=== PATIENT | male | born 1990 | race Caucasian/White ===

== ENCOUNTER 2016-11-12 20:07 | Emergency (ER) | payer BC, OTHER ==
--- NOTE | 2016-11-12 20:11 | PDOC ---
History of Present Illness - General History Source: Patient Exam Limitations: No Limitations - History of Present Illness Initial Comments: 11/12/16 20:25 The patient is a 25 year old male, with no significant past medical history, who presents to the emergency department complaining of left ear pain since approximately 16:00. The patient reports his pain is more of a discomfort. Patient denies any associated fever, chills, ear discharge, or sore throat. Patient admits he has been immersed his ears in a hot tub twice this summer. As per family member, the patient was in a saltwater hot tub last week. At the time , the pH of the tub was not normal and the filter was not on for long. Family member reported similar symptoms as the patient, but states they resolved on their own. Patient does not report any other complaints at this time. Patient reports a history of ear infections in the past. PAST MEDICAL HISTORY: No significant history PAST SURGICAL HISTORY: No significant history FAMILY HISTORY: No pertinent history SOCIAL HISTORY: Pt lives with family and is employed. MEDICATIONS: reviewed ALLERGIES: As per nursing notes PCP: Dr. Hall General: No fevers or chills, no weakness, no weight loss HEENT: Yes: +ear pain/discomfort. No change in vision. No sore throat. No ear discharge. CardioVascular: No chest pain or shortness of breath Respiratory:No cough, or wheezing. Gastrointestinal: no nausea, vomiting, diarrhea or constipation, No rectal bleeding Genitourinary: No dysuria, hematuria, or frequency Musculoskeletal: No joint or muscle pain or swelling Neurologic: No headache, vertigo, dizziness or loss of consciousness Psychiatric: nor depression Skin: No rashes or easy bruising Endocrine: no increased thirst or abnormal weight change Allergic: no skin or latex allergy All other systems reviewed and normal GENERAL: The patient is awake, alert, and fully oriented, in no acute distress. HEAD: Normal with no signs of trauma. EYES: Pupils equal, round and reactive to light, extraocular movements intact, sclera anicteric, conjunctiva clear. EARS: Bilateral tympanic membranes are dull with some mild erythema, left greater than right. EXTREMITIES: Normal range of motion, no edema. NEUROLOGICAL: Normal speech, normal gait. PSYCH: Normal mood, normal affect. SKIN: Warm, Dry, normal turgor, no rashes or lesions noted. <Ann-Marie Rivera - Last Filed: 11/12/16 20:25> - General History Source: Patient Exam Limitations: No Limitations - History of Present Illness Initial Comments: 11/12/16 20:27 A portion of this note was documented by scribe services under my direction. I have reviewed the details of the note, within reason, and agree with the documentation. The case summary and management plan written by me. Assessment and plan: This is a 25-year-old male comes in complaining of left ear pain. Patient on examination has a bilateral otitis media but left greater than right. Patient started on azithromycin and first dose given here in the emergency room. Patient had prescription sent to his pharmacy and was discharged home. <Jhony Sánchez I - Last Filed: 11/12/16 20:28> - General Chief Complaint: Ear Problem Stated Complaint: LT EAR PAIN Time Seen by Provider: 11/12/16 20:11 Past History <Ann-Marie Rivera - Last Filed: 11/12/16 20:25> - Psycho/Social/Smoking Cessation Hx Suicidal Ideation: No Smoking Status: No Smoking History: Never smoked Number of Cigarettes Smoked Daily: 0 <Jhony Sánchez I - Last Filed: 11/12/16 20:28> - Past Medical History Allergies/Adverse Reactions: Allergies Allergy/AdvReac Type Severity Reaction Status Date / Time No Known Allergies Allergy Verified 11/19/11 21:56 Home Medications: Ambulatory Orders No Home Medications 1 ea MC ONCE 11/19/11 Acetaminophen 650 mg PO ONCE 11/12/16 Azithromycin 250 mg PO DAILY #4 tablet 11/12/16 *Physical Exam - Vital Signs Last Vital Signs Temp Pulse Resp BP Pulse Ox 99 F 87 16 145/74 96 11/12/16 20:17 11/12/16 20:17 11/12/16 20:17 11/12/16 20:17 11/12/16 20:17 <Ann-Marie Rivera - Last Filed: 11/12/16 20:25> ED Treatment Course - Medications Given in the ED: ED Medications Discontinued Medications Generic Name Dose Route Start Last Admin Trade Name Shanon PRN Reason Stop Dose Admin Azithromycin 500 mg 11/12/16 20:22 11/12/16 20:25 Zithromax - PO 11/12/16 20:23 500 mg ONCE ONE Administration <Ann-Marie Rivera - Last Filed: 11/12/16 20:25> *DC/Admit/Observation/Transfer - Attestations Scribe Attestion: 11/12/16 20:25 Documentation prepared by Ann-Marie Rivera, acting as medical appointment scheduler for Jhony Sánchez MD. <Ann-Marie Rivera - Last Filed: 11/12/16 20:25> - Discharge Dispostion Admit: No <Jhony Sánchez I - Last Filed: 11/12/16 20:28> Diagnosis at time of Disposition: Bilateral acute otitis media - Discharge Dispostion Disposition: HOME Condition at time of disposition: Stable - Prescriptions Prescriptions: Azithromycin 250 mg PO DAILY #4 tablet - Referrals Referrals: Ivanna Hall MD [Primary Care Provider] - - Patient Instructions Additional Instructions: Tylenol or Motrin as needed for pain or fevers. Take azithromycin 1 tablet a day for the next 4 days take your first dose tomorrow evening. Return to the emergency department immediately with ANY new, persistent or worsening symptoms. Continue any medications as previously prescribed by your physician. You should follow up with your primary doctor as soon as possible regarding today's emergency department visit. . Please make sure your doctor reviews the results of your emergency evaluation. Thank you for coming to the Emergency Department today for your care. It was a pleasure to see you today. Please note that your evaluation is INCOMPLETE until you follow-up with your doctor.
[2016-11-12] MEDS ORDERED: AZITHROMYCIN 250 MG TABLET (FP) PO ONE (20:22)
[2016-11-12 20:23] VITALS: BP 145/74; PULSE 87; TEMP 99; BMI 42.0
[2016-11-12] MEDS ORDERED: AZITHROMYCIN 250 MG TABLET (FP) ONE (20:23)
== END 2016-11-12 20:27 | disposition home or self-care (01) ==
LOC: FER 20:07
DX: H66.93 Otitis media, unspecified, bilateral (principal)
CPT/HCPCS: 99281-25

== ENCOUNTER 2016-11-13 21:57 | Emergency (ER) | payer OTHER ==
--- NOTE | 2016-11-13 22:06 | PDOC ---
History of Present Illness - General Chief Complaint: Ear Problem Stated Complaint: EAR/FACIAL SWELLING Time Seen by Provider: 11/13/16 21:58 - History of Present Illness Initial Comments: This otherwise healthy 25-year-old man presents with increasing pain in his left ear and left-sided facial swelling for 1 day. Patient was seen here yesterday with bilateral ear pain. Bilateral otitis media (left greater than right) diagnosed patient started on azithromycin 250 mg daily. Patient has been taking his antibiotic as prescribed. Today, he and his family noted that he developed swelling in the left cheek extending to lips. He reports no tongue swelling; he has not had any difficulty swallowing or breathing;No wheezing noted. He has not had fever or chills. Of note, the patient has been swimming daily for the last week. No previous history of swimmer's ear/otitis media/otitis externa Past History - Past Medical History Allergies/Adverse Reactions: Allergies Allergy/AdvReac Type Severity Reaction Status Date / Time No Known Allergies Allergy Verified 11/19/11 21:56 Home Medications: Ambulatory Orders No Home Medications 1 ea MC ONCE 11/19/11 Acetaminophen 650 mg PO ONCE 11/12/16 Azithromycin 250 mg PO DAILY #4 tablet 11/12/16 Amox-Tr/K Cl [Augmentin - 875Mg Tablet] 1 tab PO BID #14 tablet 11/13/16 Neomycin/Polymyxn/Hc [Cortisporin Otic Suspenstion -] 4 drop AU Q4HWA #1 bottle 11/13/16 - Psycho/Social/Smoking Cessation Hx Anxiety: No Suicidal Ideation: No Smoking Status: No Smoking History: Never smoked Have you smoked in the past 12 months: Yes Number of Cigarettes Smoked Daily: 0 If you are a former smoker, when did you quit?: RUBÉN 'Breaking Loose' booklet given: 11/12/16 Review of Systems - Review of Systems Able to Perform ROS?: Yes Comments:: 12 point review of systems is negative except for what is noted in the history of present illness *Physical Exam - Physical Exam Comments: GENERAL: Young adult male, alert and oriented 3, in no acute distress HEAD: Normal with no signs of trauma. EYES: PERRLA, EOMI, sclera anicteric, conjunctiva clear. ENT: Right earmild canal edema, partial visualization of TM shows dullness Left earmoderate canal edema with mild erythema; TM could not be visualized; patient had mild pain with movement of external ear Mild left cheek edema with minimal upper and lower lip edema; no tongue/ uvular edema; no erythema or masses No trismus noted NECK: Normal range of motion, supple; mildly tender enlarged left anterior cervical lymphadenopathy, no JVD, or stridor. LUNGS: Breath sounds equal, clear to auscultation bilaterally. No wheezes, and no crackles. HEART:Regular rate and rhythm, normal S1 and S2 without murmur, rub or gallop. ABDOMEN:.normal bowel sounds No guarding,tenderness or rebound.No masses No distention. EXTREMITIES: Normal range of motion, no edema. No clubbing or cyanosis. No erythema, or tenderness. NEUROLOGICAL: Cranial nerves II through XII grossly intact. Normal speech. No focal neurological deficits. MUSCULOSKELETAL: Back non-tender to palpation, no CVA tenderness SKIN: Warm, Dry, normal turgor, no rashes or lesions noted. Medical Decision Making - Medical Decision Making This 25-year-old man seen here yesterday with bilateral otitis media presents with increasing pain/swelling of left ear/left side of face. Patient had been taking azithromycin as prescribed. On exam, he has significant bilateral otitis externa; TM could not be visualized on the left. Patient is at risk for otitis externa because of his frequent swimming over the last week. Patient will be started on treatment for the otitis externa (Cortisporin otic suspension ) and oral antibiotic coverage will be broadened to Augmentin 875/125. *DC/Admit/Observation/Transfer Diagnosis at time of Disposition: Bilateral otitis externa Qualifiers: Otitis externa type: swimmer's ear Chronicity: acute Qualified Code(s): H60.333 - Swimmer's ear, bilateral - Discharge Dispostion Disposition: HOME Condition at time of disposition: Stable - Prescriptions Prescriptions: Amox-Tr/K Cl [Augmentin - 875Mg Tablet] 1 tab PO BID #14 tablet Neomycin/Polymyxn/Hc [Cortisporin Otic Suspenstion -] 4 drop AU Q4HWA #1 bottle - Referrals Referrals: Ivanna Hall MD [Primary Care Provider] - 3 days - Patient Instructions Printed Discharge Instructions: Otitis Externa Additional Instructions: Stop azithromycin Begin Augmentin 875/125 twice a day for one week (take with food) Begin Cortisporin eardrops 4 drops in each ear every 4 hours while awake for 1 week Ibuprofen/acetaminophen/naproxen as needed for pain Follow-up with within 2-3 days Return to ER if you have severe pain/high fever/increased facial swelling
[2016-11-13 22:10] VITALS: BP 135/81; PULSE 88; TEMP 99.2; BMI 42.0
[2016-11-13] MEDS ORDERED: AMOX TR/POT CLAV 875MG/125MG TABLETS (FP) PO ONE (22:14)
[2016-11-13] MEDS ORDERED: AMOX TR/POT CLAV 875MG/125MG TABLETS (FP) ONE (22:18)
== END 2016-11-13 22:23 | disposition home or self-care (01) ==
LOC: FER 21:57
DX: H60.333 Swimmer's ear, bilateral (principal)
CPT/HCPCS: 99281-25

== ENCOUNTER 2025-01-06 02:23 | Emergency (ER) | payer BC ==
[2025-01-06 02:31] VITALS: BP 138/95; PULSE 104; RESP 18; TEMP 98.6; BMI 30.2
[2025-01-06] MEDS ORDERED: DIPHTH,PERTUSS(ACELL),TET 0.5 ML DISP.SYRIN IM ONE (02:31)
[2025-01-06] MEDS: DIPHTH,PERTUSS(ACELL),TET 0.5 ML DISP.SYRIN IM ONE (02:35)
== END 2025-01-06 04:05 | disposition home or self-care (01) ==
LOC: FER 02:23
PROC: 3E0234Z Introduction of Serum, Toxoid and Vaccine into Muscle, Percutaneous Approach (ICD-10-PCS; principal; 2025-01-06)
DX: S01.01XA Laceration without foreign body of scalp, initial encounter (principal); Z23 Encounter for immunization; W01.198A Fall on same level from slipping, tripping and stumbling with subsequent striking against other object, initial encounter; Y92.009 Unspecified place in unspecified non-institutional (private) residence as the place of occurrence of the external cause
CPT/HCPCS: 70450-TC; 90715; 99285-25